=== PATIENT | female | born 1950 | race Caucasian/White ===

== ENCOUNTER 2017-05-21 11:58 | Inpatient (IN) | payer OTHER ==
[~2017-05-21] VITALS: Ht 160 cm; Wt 104.8 kg
--- NOTE | 2017-05-21 12:06 | ED DYSPNEA/ASTHMA COMPLAINT ---
History of Present Illness General Chief Complaint: Dyspnea (COPD, CHF, Other) Stated Complaint: BIBA WITH SOB Source: patient Exam Limitations: no limitations Vital Signs & Intake/Output Vital Signs & Intake/Output Vital Signs Date Time Temp Pulse Resp B/P B/P Pulse O2 O2 Flow FiO2 Mean Ox Delivery Rate 05/21 1504 76 134/95 05/21 1234 97.8 80 18 181/89 93 Room Air Allergies Coded Allergies: No Known Allergies (05/21/17) Reconcile Medications Calcium Carbonate/Vitamin D3 (Caltrate 600 + D Tablet) (Unknown Strength) TABLET (Unknown Dose) PO DAILY SUPPLEMENT (Reported) Chlorthalidone 25 MG TABLET 1 TAB PO DAILY OSTEOPOROSIS (Reported) Diclofenac Sodium (Pennsaid) 20 MG/GRAM PER ACTUATION (2 %) BICYCLE DESIGNER 1 LINNETTE TOP PRN BACK OF KNEE (Reported) Multivit-Min/FA/Lycopen/Lutein (Centrum Silver Tablet) 0.4 MG-300 MCG-250 MCG TABLET 1 TAB PO DAILY SUPPLEMENT (Reported) Nystatin (Nystop) 100,000 UNIT/GRAM POWDER 1 LINNETTE TOP PRN SKIN FOLDS (Reported ) Potassium Chloride 20 MEQ TAB.ER.PRT 1 TAB PO DAILY SUPPLEMENT (Reported) Pyridoxine HCl (Vitamin B-6) (Unknown Strength) TABLET (Unknown Dose) PO DAILY SUPPLEMENT (Reported) Sertraline HCl 50 MG TABLET 1.5 TAB PO DAILY MENTAL HEALTH (Reported) Triage Note: [facility] PT WAS A RAPID RESPONSE. STATES SHE WAS SITTING TALKING WITH ONE OF THE FITNESS MENTORS AND STARTED TO FEEL CHEST PRESSURE AND SHORTNESS OF BREATH. STATES SHE HAS BEEN FEELING LIKE THIS PERIODICALLY Triage Nurses Notes Reviewed? yes Onset: Abrupt Duration: week(s): (1), continues in ED, intermittent Timing: single episode today Severity: mild, moderate Activities at Onset: activity Prior Episodes/Possible Cause: no prior episodes Modifying Factors: Worsens With: movement. Associated Symptoms: chest pain LMP (ages 10-50): post menopausal : No Patient currently breastfeeds: No HPI: 66-year-old female brought in by notes his rapid response complaining of chest pain and shortness of breath. Patient reports that since last Thursday while she was on vacation in [place] she started to notice pressure in the center of her chest. She rates the pressure as a 3 out of 10 that is worse with physical activity and improves at rest. She denies having previous chest pain or pressure in the past. No prior MIs cardiac cath's. The pressure continued intermittently throughout this week. Earlier today patient was at a fitness center getting evaluated by instructorKrupa Boone that while she had been walking during fitness test she was feeling short of breath and was having chest pressure. The instructor color rapid response patient was brought in by ambulance. Patient currently does reports some shortness of breath. She states "she feels like she cannot take a deep breath". Additionally she reports some minor chest pressure. Denies any hemoptysis, lower extremity edema, coughing, fever, history of blood clots, recent trauma, recent surgery, estrogen use, back pain or any other associated symptoms. She has not taken any medication for the pain. She is seen by highway maintainer Dr. Lo. She also has a retail special event associate at [place]. She has been seeing the retail special event associate because during a surgical procedure her oxygen saturation had dropped to the low 90s. She denies any previous history of smoking. She does report that her brother has a history of coronary artery disease and had an NM in his 40s. (ROBIN CUELLAR PA-C) Past History Travel History Traveled to [place] past 21 day No Medical History Any Pertinent Medical History? see below for history Surgical History Surgical History: none Family History Hx Contributory? Yes (ROBIN CUELLAR PA-C) Review of Systems Review of Systems Constitutional: Reports: no symptoms. EENTM: Reports: no symptoms. Respiratory: Reports: see HPI, short of breath. Cardiovascular: Reports: see HPI, chest pain. GI: Reports: no symptoms. Genitourinary: Reports: no symptoms. Musculoskeletal: Reports: no symptoms. Skin: Reports: no symptoms. Neurological/Psychological: Reports: no symptoms. Hematologic/Endocrine: Reports: no symptoms. Immunologic/Allergic: Reports: no symptoms. All Other Systems: Reviewed and Negative (ROBIN CUELLAR PA-C) Physical Exam Physical Exam General Appearance: well developed/nourished, no apparent distress, alert, awake , obese Head: atraumatic, normal appearance Eyes: Bilateral: normal appearance, PERRL, EOMI. Ears, Nose, Throat: normal pharynx, normal ENT inspection, hearing grossly normal Neck: normal inspection, supple, full range of motion Respiratory: normal breath sounds, chest non-tender, no respiratory distress, lungs clear Cardiovascular: regular rate/rhythm, normal peripheral pulses Peripheral Pulses: 2+ dorsalis pedis (R), 2+ dorsalis pedis (L) Gastrointestinal: normal bowel sounds, soft, non-tender, no organomegaly Extremities: normal inspection, normal capillary refill, normal range of motion, no edema Neurologic/Psych: no motor/sensory deficits, awake, alert, oriented x 3, normal gait, normal mood/affect Skin: intact, normal color, warm/dry Lymphatic: no anterior cervical susan Core Measures ACS in differential dx? Yes Severe Sepsis Present: No Septic Shock Present: No (ROBIN CUELLAR PA-C) Progress Differential Diagnosis: AMI, bronchitis, costochondritis, CHF, COPD, musculoskeletal pain, pericarditis, pulmonary embolism, pneumonia, pneumothorax, rib fracture, unstable angina Plan of Care: Orders Procedure Date/time Status Nothing by Mouth 05/22 B Active TROPONIN LEVEL 05/22 2030 Active EKG 05/22 2030 Active LIPID PANEL 05/22 0500 Active ICU LAB BUNDLE 05/22 0500 Active CBC WITHOUT DIFFERENTIAL 05/22 0500 Active Pathway - chart 05/21 1631 Active Code Status 05/21 1631 Active TROPONIN LEVEL 05/21 1630 Active EKG 05/21 1630 Active ECHOCARDIOGRAM 05/21 1613 Active ACTIVE SURVEILLANCE NARES 05/21 1544 Active Patient Data 05/21 1432 Active Admit to inpatient 05/21 1425 Active Telemetry/Wood Gluer 05/21 1233 Active URINALYSIS 05/21 1233 Complete TROPONIN LEVEL 05/21 1233 Complete D-DIMER 05/21 1233 Complete COMPREHENSIVE METABOLIC PANEL 05/21 1233 Complete CBC WITHOUT DIFFERENTIAL 05/21 1233 Complete B-TYPE NATRIURETIC PEP (BNP) 05/21 1233 Complete Intake & Output 05/21 1213 Active EKG 05/21 1201 Active Pathway - chart 05/21 UNK Active House Staff 05/21 UNK Active VTE Mechanical Prophylaxis 05/21 UNK Active Vital Signs 05/21 UNK Active Current Medications Sig/Virgie Start time Last Medication Dose Stop Time Status Admin Multivitamins 1 TAB DAILY 05/22 1000 UNVr (Theragran Vitamins) Potassium Chloride 20 MEQ DAILY 05/22 1000 UNVr (K-Dur) Atorvastatin Calcium 80 MG 1700 05/21 1700 AC (Lipitor) Sodium Chloride 1,000 ML Q20H 05/21 1645 UNVr (Normal Saline 0.9%) Acetaminophen 650 MG Q6P PRN 05/21 1630 UNVr (Tylenol) Nystatin 1 LINNETTE BID PRN 05/21 1630 UNVr (Mycostatin) Nitroglycerin 25 MG .[EMILY] 05/21 1530 AC (Nitroglycerin Drip 25 mg in D5 250ml) Dextrose/Water 250 ML (D5W) Heparin Sodium 4,000 UNIT ONCE ONE 05/21 1430 CAN (Porcine) 05/21 1431 Heparin Sodium/ 25,000 UNIT Q24H 05/21 1430 AC 05/21 Dextrose 05/22 1429 1622 (Heparin) Dextrose/Water 500 ML (D5W) Laboratory Tests 05/21/17 1633: Troponin I Pending 05/21/17 1255: Anion Gap 12, Estimated GFR > 60, BUN/Creatinine Ratio 24.3, Glucose 96, Calcium 9.8, Total Bilirubin 0.7, AST 41 H, ALT 40, Alkaline Phosphatase 69, Troponin I 1.72 *H, Xok-M-Jemceiorjel Pept 106, Total Protein 7.6, Albumin 4.5, Globulin 3.1, Albumin/Globulin Ratio 1.5, D-Dimer High Sensitivty 238, CBC w Diff NO MAN DIFF REQ, RBC 5.11, MCV 84.3, MCH 27.8, RDW 14.4, MPV 9.8, Gran % 79.3 H, Lymphocytes % 15.1 L, Monocytes % 4.4, Eosinophils % 0.9, Basophils % 0.3, Absolute Granulocytes 6.7 H, Absolute Lymphocytes 1.3, Absolute Monocytes 0.4, Absolute Eosinophils 0.1, Absolute Basophils 0, PUBS MCHC 33.0 05/21/17 1240: Urine Color YEL, Urine Clarity HAZY H, Urine pH 7.0, Ur Specific [place] 1.010, Urine Protein NEG, Urine Ketones NEG, Urine Nitrite NEG, Urine Bilirubin NEG, Urine Urobilinogen 0.2, Ur Leukocyte Esterase SMALL H, Ur Microscopic SEDIMENT EXAMINED, Urine RBC RARE, Urine WBC RARE, Ur Epithelial Cells RARE, Urine Bacteria RARE H, Urine Hemoglobin TRACE-LYSED, Urine Glucose NEG Microbiology 05/21 1544 UPPER RESP: Surveillance Culture - ORD Patient seen and evaluated. She'll receive a workup for chest pain of possible cardiac origin. She is currently nontoxic appearing vitals are stable. 2:16 PM: Troponin came back at 1.72. Remaining labs are within normal limits and unchanged from previous. Patient will have a CTA to rule out pulmonary embolism. Cardiology paged. Patient will need to be admitted for further evaluation and monitoring. CTA is negative. Discussed all results with patient. Talked with cardiology Dr Megan MD. he recommends loading the patient with heparin 4000 and aspirin 325 Plavix 300 and Lipitor 80. Nitro drip due to chest pain with elevated blood pressure. SPOKE With MOD. Patient will be admitted to ICU. (ALISA WELLS,ROBIN) Diagnostic Imaging: Viewed by Me: Radiology Read, CT Scan. Initial ED EKG: sinus rhythm, LVH, non-specific t wave abnormalites inferior leads Comments: PATIENT: SAMIR BETANCOURT PRESENT AGE: 66 PATIENT ACCOUNT NO: [id number] : 52 LOCATION: [facility] ORDERING PHYSICIAN: ROBIN CUELLAR PA-C SERVICE DATE: 05/21/171233 EXAM TYPE: RAD - XRY-CHEST XRAY, PA AND LATERAL EXAMINATION: XR CHEST CLINICAL INFORMATION: Chest pressure, shortness of breath. COMPARISON: None TECHNIQUE: 2 views of the chest were obtained. FINDINGS: The cardiomediastinal silhouette is normal. No focal consolidation, pleural effusion or pneumothorax is appreciated. Osseous structures are unremarkable. IMPRESSION: No acute cardiopulmonary process. DICTATED BY: PRATIK ALDRICH MD DATE/TIME DICTATED:05/21/171311 GLASS INSTALLER TECHNICIAN:FILOMENA DATE/TIME TRANSCRIBED:05/21/171311 PATIENT: SAMIR BETANCOURT PRESENT AGE: 66 PATIENT ACCOUNT NO: [id number] : 52 LOCATION: [facility] ORDERING PHYSICIAN: ROBIN CUELLAR PA-C SERVICE DATE: 05/21/173749 EXAM TYPE: CAT - CTA CHEST-PULMONARY EMBOLISM EXAMINATION: CT ANGIOGRAM OF THE CHEST WITH AND WITHOUT CONTRAST (CT PULMONARY ANGIOGRAM FOR PE) CLINICAL INFORMATION: Pain shortness of breath pulmonary embolism COMPARISON: Chest x-ray performed same day TECHNIQUE: Prior to contrast administration, noncontrast localization images were obtained. Subsequently, multidetector volumetric imaging was performed from the thoracic inlet to below the diaphragms following the administration of 95 mL Optiray 350 intravenous contrast. No contrast reaction reported. Sagittal, coronal, and MIP oblique sagittal reformatted images were obtained on the CT workstation, uploaded to PACS, and reviewed. Total exam dose-length product 523 mGy-cm. FINDINGS: QUALITY OF STUDY/CONTRAST BOLUS: Satisfactory PULMONARY ARTERIES: No central or segmental pulmonary emboli. THORACIC AORTA: There is mild calcific atherosclerotic disease. LUNG: No focal consolidation, nodules or masses. PLEURA: No pleural effusion or pneumothorax. MEDIASTINUM: Normal heart size. No pericardial effusion. No hilar or mediastinal lymphadenopathy. No evidence of septal bowing or right heart strain. CHEST WALL/AXILLA: No axillary or internal mammary lymphadenopathy. OSSEOUS STRUCTURES: No acute or suspicious osseous abnormality. UPPER ABDOMEN: Unremarkable. No reflux of contrast into the hepatic veins to suggest elevated right heart pressures. IMPRESSION: No evidence of pulmonary embolism. No acute disease Mild calcific atherosclerotic disease. VTE: negative DICTATED BY: BOLIVAR SANCHEZ MD DATE/TIME DICTATED:05/21/171443 GLASS INSTALLER TECHNICIAN:FILOMENA DATE/TIME TRANSCRIBED:05/21/171443 CONFIDENTIAL, DO NOT COPY WITHOUT APPROPRIATE AUTHORIZATION. <Electronically signed in Other Vendor System> SIGNED BY: BOLIVAR SANCHEZ MD 05/21 8218 (ROBIN CUELLAR PA-C) Departure Departure Disposition: STILL A PATIENT Condition: Stable Clinical Impression Primary Impression: Chest pain Qualifiers: Chest pain type: chest pain due to myocardial ischemia Ischemic chest pain type: unstable angina pectoris Qualified Code: I20.0 - Unstable angina Secondary Impressions: SOB (shortness of breath) on exertion Referrals: UNKNOWN Departure Forms: Customer Survey General Discharge Information Admission Note Spoke With: MEGAN OWENS,[facility] Documentation of Exam: Documentation of any treatments & extenuating circumstances including Concerns Regarding Discharge (functional status, medication knowledge or non-compliance, living conditions, etc.) that warrant an admission rather than observation: Patient requires admission to the ICU for ICU monitoring, monitoring vital signs , serial labs, cardiology consult, IV heparin, medication adjustment, physical therapy consult (ROBIN CUELLAR PA-C) PA/APARTMENT COORDINATOR Co-Sign Statement Statement: ED Attending supervision documentation- [X] I saw and evaluated the patient. I have also reviewed all the pertinent lab results and diagnostic results. I agree with the findings and the plan of care as documented in the PA's/APARTMENT COORDINATOR's documentation. [X] I have reviewed the ED Record and agree with the PA's/APARTMENT COORDINATOR's documentation. [] Additions or exceptions (if any) to the PAs/APARTMENT COORDINATOR's note and plan are summarized below: [Patient sent over as a rapid response. Patient has been having increasing chest pressure with exertion as well as dyspnea on exertion. Patient found to have an elevated troponin. Patient has continued pain. Patient will be admitted to the cardiology service in the ICU.] (CASANDRA OWENS,ALIZE Wang) Critical Care Note Critical Care Note Critical Care Time: non-applicable (ALISA WELLS,ROBIN)
--- NOTE | 2017-05-21 12:10 | NUR ---
[facility]. PT WAS A RAPID RESPONSE. STATES SHE WAS SITTING TALKING WITH ONE OF THE FITNESS MENTORS AND STARTED TO FEEL CHEST PRESSURE AND SHORTNESS OF BREATH. STATES SHE HAS BEEN FEELING LIKE THIS PERIODICALLY. STATES SHE WAS IN [place] LAST WEEK AND FLEW HOME X2 DAYS AGO. STATES SHE DOES HAVE CHEST PRESSURE CURRENTLY.
--- NOTE | 2017-05-21 12:40 | NUR ---
PT TO RAD.
--- NOTE | 2017-05-21 12:42 | NUR ---
BACK FROM RAD.
--- NOTE | 2017-05-21 12:56 | NUR ---
PT BLOOD SENT TO THE LAB BLUE,SST,LAV,ESPINAL AND THREE URINE TUBES
[2017-05-21 13:03] LABS: ABSOLUTE BASOPHIL COUNT 0 /CUMM (0.0-0.2); ABSOLUTE EOSINOPHIL COUNT 0.1 /CUMM (0.0-0.7); ABSOLUTE GRANULOCYTE CT 6.7 /CUMM (1.4-6.5); ABSOLUTE LYMPH COUNT 1.3 /CUMM (1.2-3.4); ABSOLUTE MONOCYTE COUNT 0.4 /CUMM (0.10-0.60); BASOPHIL % 0.3 % (0.0-2.0); EOSINOPHIL % 0.9 % (0-5); GRANULOCYTE % 79.3 % (42.2-75.2); HEMATOCRIT 43.1 % (37-47); MEAN CORPUSCULAR HGB 27.8 PG (27.0-31.0); MEAN CORPUSCULAR VOLUME 84.3 FL (81.0-99.0); MEAN PLATELET VOLUME 9.8 FL (7.4-10.4); PLATELET COUNT 244 /CUMM (130-400); RBC DISTRIBUTION WIDTH 14.4 % (11.5-14.5); RED BLOOD CELL CT 5.11 /CUMM (4.20-5.40); WHITE BLOOD CELL COUNT 8.4 /CUMM (4.8-10.8)
--- NOTE | 2017-05-21 13:17 | RADIOLOGY REPORT ---
EXAMINATION: XR CHEST CLINICAL INFORMATION: Chest pressure, shortness of breath. COMPARISON: None TECHNIQUE: 2 views of the chest were obtained. FINDINGS: The cardiomediastinal silhouette is normal. No focal consolidation, pleural effusion or pneumothorax is appreciated. Osseous structures are unremarkable. IMPRESSION: No acute cardiopulmonary process.
[2017-05-21] MEDS ORDERED: POTASSIUM CHLO20 ME2 PO (13:34)
[2017-05-21] MEDS ORDERED: CHLORTHALIDONE25 M1 PO (13:34)
[2017-05-21] MEDS ORDERED: CALTRATE 600 +1 EACH PO (13:35)
[2017-05-21] MEDS ORDERED: CENTRUM SILVER1 EAC3 PO (13:35)
[2017-05-21] MEDS ORDERED: SERTRALINE HCL50 MG PO (13:35)
[2017-05-21] MEDS ORDERED: VITAMIN B-650 M2 PO (13:36)
[2017-05-21] MEDS ORDERED: PENNSAID112 GM TOP (13:36)
[2017-05-21] MEDS ORDERED: NYSTOP60 GM TOP (13:36)
--- NOTE | 2017-05-21 13:41 | NUR ---
CRITICAL TEST RESULTS [id number] SAMIR BETANCOURT 66 F TESTS AND RESULTS: TROPONIN 1.72 Results received and read back by: RADHA LACY Results received date and time: 05/21/17 1341 The following provider was notified of the results, and read the results back: SHANICE CUELLAR Notified date and time: 05/21/17 at 1341
--- NOTE | 2017-05-21 13:51 | NUR ---
PT TO CAT.
--- NOTE | 2017-05-21 14:08 | NUR ---
BACK FROM CAT.
--- NOTE | 2017-05-21 15:07 | CT SCAN REPORT ---
EXAMINATION: CT ANGIOGRAM OF THE CHEST WITH AND WITHOUT CONTRAST (CT PULMONARY ANGIOGRAM FOR PE) CLINICAL INFORMATION: Pain shortness of breath pulmonary embolism COMPARISON: Chest x-ray performed same day TECHNIQUE: Prior to contrast administration, noncontrast localization images were obtained. Subsequently, multidetector volumetric imaging was performed from the thoracic inlet to below the diaphragms following the administration of 95 mL Optiray 350 intravenous contrast. No contrast reaction reported. Sagittal, coronal, and MIP oblique sagittal reformatted images were obtained on the CT workstation, uploaded to PACS, and reviewed. Total exam dose-length product 523 mGy-cm. FINDINGS: QUALITY OF STUDY/CONTRAST BOLUS: Satisfactory PULMONARY ARTERIES: No central or segmental pulmonary emboli. THORACIC AORTA: There is mild calcific atherosclerotic disease. LUNG: No focal consolidation, nodules or masses. PLEURA: No pleural effusion or pneumothorax. MEDIASTINUM: Normal heart size. No pericardial effusion. No hilar or mediastinal lymphadenopathy. No evidence of septal bowing or right heart strain. CHEST WALL/AXILLA: No axillary or internal mammary lymphadenopathy. OSSEOUS STRUCTURES: No acute or suspicious osseous abnormality. UPPER ABDOMEN: Unremarkable. No reflux of contrast into the hepatic veins to suggest elevated right heart pressures. IMPRESSION: No evidence of pulmonary embolism. No acute disease Mild calcific atherosclerotic disease. VTE: negative
--- NOTE | 2017-05-21 15:13 | NUR ---
PER HOUSE STAFF, NO NITRO DRIP TO BE STARTED, ONLY START HEPARIN DRIP.
--- NOTE | 2017-05-21 15:21 | NUR ---
RECIEVED REPORT FROM [facility] ASSUMED CARE OF PT. DR SARAVIA CALLED AND GAVE ORDERS TO START HEPARIN GTT. NOTIFIED THAT THERE IS ORDER FOR NTG GTT THAT WAS ORDERED BY ED STAFF. DR SARAVIA STATES NOT TO START NTG GTT AT THIS TIME
--- NOTE | 2017-05-21 16:20 | NUR ---
PT UP TO RESTROOM TO VOID. PT STARTED ON HEPARIN AND NTG GTT
--- NOTE | 2017-05-21 16:22 | History & Physical ---
LIBRADO SHARMAVOLODYMYR 05/21/17 1615: General Information and HPI MD Statement: I have seen and personally examined SAMIR BETANCOURT and documented this H&P. The patient is a 66 year old F who presented with a patient stated chief complaint of SOB chest pressure]. Source of Information: patient, old records Exam Limitations: no limitations History of Present Illness: 66 years old lady with pmh of osteoprosis, LINA, low o2 saturation, previous gastric band(inserted 2008, removed around 2014) was brought back ambulance from [facility] with chief complaint of chest pressure and shortness of breath. She reported that she was in October about 5 days ago and started noticing being shortness of breath on moderate exertion and chest pressure mediastinal 2 out of 10 without any nausea, vomiting, radiation. SHe attributed it to high altitude. Today she went to [facility] and had a 6 minute walk test, at 3 minutes she was severely dyspneic and dizzy with moderate chest pressure rapid response was called and patient was transferred to ED. She has a history of low o2 saturation(low 90's) and had an extensive workup by you business analytics intern but according to her everything was negative. She denies smoking, illicit drugs, alcohol use. Her brother had an [place] at age of 45 and he is a smoker. She denies any fever, chills, bone pain, nausea, vomiting, diarrhea, constipation, cough, headache, swelling of the legs. Notable labs on admission troponin was 1.72, d-dimer was within normal limits CTA ruled out PE EKG showed normal sinus rhythm, 78, QTC 424, ventricular hypertrophy, inverted T 's in 3 and V1, questionable Q-wave in V1 and 3? Allergies/Medications Allergies: Coded Allergies: No Known Allergies (05/21/17) Past History Travel History Traveled to [place] past 21 day No Medical History Respiratory: obstructive sleep apnea Endocrine: prediabetes Surgical History Surgical History: none Past Family/Social History Family History Relations & Conditions if any BROTHER ([place] CAD DM HTN). FATHER (esophageal cancer). MOTHER (lung cancer). Psychosocial History Smoking Status: Never Smoked ETOH Use: denies use Illicit Drug Use: denies illicit drug use Review of Systems Review of Systems Constitutional: Reports: see HPI. Exam & Diagnostic Data Last 24 Hrs of Vital Signs/I&O Vital Signs Date Time Temp Pulse Resp B/P B/P Pulse O2 O2 Flow FiO2 Mean Ox Delivery Rate 05/21 1504 76 134/95 05/21 1234 97.8 80 18 181/89 93 Room Air Intake & Output 05/21 1600 05/21 0800 05/21 0000 Intake Total Output Total Balance Patient 232 lb Weight Weight Reported by Patient Measurement Method Physical Exam General Appearance Alert, Oriented X3, Cooperative Cardiovascular Regular Rate, Normal S1, Normal S2, 2-3/6 systolic murmur best heard second IC area Lungs Clear to Auscultation, Normal Air Movement Abdomen Normal Bowel Sounds, Soft, No Tenderness Neurological Normal Gait, Normal Speech, Strength at 5/5 X4 Ext Extremities No Clubbing, No Cyanosis, trace lower right ext edema Assessment/Plan Assessment: 66 years old lady with pmh of osteoprosis, LINA, low o2 saturation, previous gastric band(inserted 2008, removed around 2014) was brought back ambulance from [facility] with chief complaint of chest pressure and shortness of breath. She reported that she was in October about 5 days ago and started noticing being shortness of breath on moderate exertion and chest pressure mediastinal 2 out of 10 without any nausea, vomiting, radiation. SHe attributed it to high altitude. Today she went [facility] and had a 6 minute walk test, at 3 minutes she was severely dyspneic and dizzy with moderate chest pressure rapid response was called and patient was transferred to ED. Notable labs on admission troponin was 1.72, d-dimer was within normal limits CTA ruled out PE EKG showed normal sinus rhythm, 78, QTC 424, ventricular hypertrophy, inverted T 's in 3 and V1, questionable Q-wave in V1 and 3? Assessment and plan #ACS most likely unstable angina -Admit to ICU -Put the patient on IV heparin -Aspirin 325 and Plavix 300 -Aspirin daily -start High doses statin -Gerry score : (2 )8% risk at 14 days of: all-cause mortality, new or recurrent [place], or severe recurrent ischemia requiring urgent revascularization. -We can consider starting the patient on low-dose metoprolol -Start the patient on nitro drip and titrate to normal blood pressure -will obtain echocardiogram -NPO for now on mild IV hydration -Serial EKG and troponin 3, possible chance of transferring for catheterization hx of osteoprosis -hold chrolitalidone for now -we can start vit D calcium tomorrow hx of anxiety depression -Continue SSRI tomorrow Full code, Tylenol and morphine for pain, NPO, DVT prophylaxis Alps and IV heparin As Ranked By This Provider Problem List: 1. Chest pain Qualifiers Chest pain type: chest pain due to myocardial ischemia Ischemic chest pain type : unstable angina pectoris Qualified Code: I20.0 - Unstable angina Core Measures/Miscellaneous Acute Coronary Syndrome ACS Diagnosis: Yes ASA W/I 24hr of admit Yes Beta-Selwyn W/I 24hrs Yes LDL assessed W/I 24 hrs No Currently on Statin Yes Cerebrovascular Accident CVA/TIA Diagnosis: No Congestive Heart Failure CHF Diagnosis: No VTE (View Protocol) VTE Risk Factors: Age > 40 No [facility] VTE prophylaxis d/t: No contraindications VTE Diagnosis: No VTE Type: NONE VTE Confirmed by (Test): NONE Sepsis (View Protocol) Severe Sepsis Present: No Septic Shock Septic Shock Present: No Miscellaneous Documentation Attending Case Discussed With: IS[facility]AR [facility] Primary Care Physician: KURTIS FREY MD Patient sees these Specialists Dr nielsen stage technician Dr kelly business analytics intern JONNY OWENS,SB 05/22/17 1101: General Information and HPI Allergies/Medications Home Med list Aspirin (Aspirin*) 81 MG TAB.CHEW 1 TAB PO DAILY HEART HEALTH Atorvastatin Calcium 80 MG TABLET 1 TAB PO 1700 LIPID LOWERING Calcium Carbonate/Vitamin D3 (Caltrate 600 + D Tablet) (Unknown Strength) TABLET (Unknown Dose) PO DAILY SUPPLEMENT (Reported) Chlorthalidone 25 MG TABLET 1 TAB PO DAILY OSTEOPOROSIS (Reported) Diclofenac Sodium (Pennsaid) 20 MG/GRAM PER ACTUATION (2 %) .PERSONAL COMPUTER SPECIALIST 1 LINNETTE TOP PRN BACK OF KNEE (Reported) Heparin (Heparin-1/2NS 25,000 Units/500) 25,000 UNIT/500 ML (50 UNIT/ML) IV.SOLN 12 UNITS IV CONTINOUS INFUSION unstable angina Multivit-Min/FA/Lycopen/Lutein (Centrum Silver Tablet) 0.4 MG-300 MCG-250 MCG TABLET 1 TAB PO DAILY SUPPLEMENT (Reported) Nitroglycerin/D5w (Ntg 25 MG/250 Ml in D5w) 25 MG/250 ML (0.1 MG/ML) INFUS..BTL 5 MCG IV CONTINOUS INFUSION ANGINA PLEASE CT DRIP AT 5 MCG/HOUR Nystatin (Nystop) 100,000 UNIT/GRAM POWDER 1 LINNETTE TOP PRN SKIN FOLDS (Reported ) Potassium Chloride 20 MEQ TAB.ER.PRT 1 TAB PO DAILY SUPPLEMENT (Reported) Pyridoxine HCl (Vitamin B-6) (Unknown Strength) TABLET (Unknown Dose) PO DAILY SUPPLEMENT (Reported) Sertraline HCl 50 MG TABLET 1.5 TAB PO DAILY MENTAL HEALTH (Reported) Core Measures/Miscellaneous VTE (View Protocol) No VTE Pharm Prophylaxis d/t: VTE low risk (on anticoagulation (heparin)) Miscellaneous Documentation Level of Patient Care: Critical Care (CRI) Attending MD Review Statement Attending Statement Attending MD Statement: examined this patient, discuss w/resident/PA/ELECTRONIC EQUIPMENT REPAIRMEN, agreed w/resident/PA/ELECTRONIC EQUIPMENT REPAIRMEN, reviewed EMR data (avail), discussed with nursing, discussed with case mgmt, reviewed images Attending Assessment/Plan: I have personally interviewed and examined the patient, and agree with above. The patient post likely presents with a non-ST segment elevation myocardial infarction. Given her symptoms 1 week ago, it is unclear if her troponins represent an acute process or are secondary to a reduction from an event one week ago. Regardless, as the patient has new exertional anginal symptoms, versus continued exertional anginal symptoms with post infarct angina, we will refer for cardiac catheterization today. A load of clopidogrel has been given; however, we will not continue the same in the event that surgical diseases found on cardiac catheterization. She will be transferred to the [facility] today. I have spoken with the accepting cna instructor (Dr. Peter Ponce: [phone]). She will maintain on IV heparin as well as nitroglycerin until the catheterization. She will continue aspirin, statin as well as a beta selwyn. She will also follow-up with her primary stage technician Dr. nielsen.
--- NOTE | 2017-05-21 16:34 | NUR ---
1630 TROP DRAWN AND SENT
--- NOTE | 2017-05-21 16:42 | NUR ---
BED 104
--- NOTE | 2017-05-21 16:45 | NUR ---
BEDSIDE ECHO BEING PERFORMED.
--- NOTE | 2017-05-21 18:00 | NUR ---
CRITICAL TEST RESULTS [id number] SAMIR BETANCOURT 66 F TESTS AND RESULTS: TROPONIN 1.8 Results received and read back by: LIZZETTE MATUTE Results received date and time: 05/21/17 1800 The following provider was notified of the results, and read the results back: DR SHARMA Notified date and time: 05/21/17 at 1758
[2017-05-21 18:10] VITALS: BP 142/84
--- NOTE | 2017-05-21 18:44 | NUR ---
Patient arrived to [facility] from ER at approx 1805, accompanied by RN on the monitoring manager. She is awake, alert and oriented- very pleasant. Follows commands and moves all extremities- No neuro deficits are noted. NSR on tele monitor, HR= 70-90's. SBP: 140's- Heparin gtt infusing per protocol with the next PTT due at 2220- Nitro gtt is infusing at 10mcg- She c/o intermittent chest pressure 2/10 which is much improved per patient. ECHO completed. She was placed on 2L nc upon arrival to ICU, o2 sats now 95%- RA o2 sats were 89%. She states that she becomes SOB with exertion and her baseline O2 sats on room air are at 91%. Lungs clear and diminished. Abdomen is soft and non tender with + bowel sounds. A dinner tray has been ordered. She will be NPO after midnight for an anticipated cardiac cath- Education has been provided. She is OOB indep and was able to walk from the stretcher to the bed. Skin appears intact with no areas of pressure injury noted. Dr. Herzog at the bedside to assess and discuss POC with patient and family. Vitals currently stable and pt offers no complaints. Repeat labs due at 2029- Will continue to closely monitor patient.
--- NOTE | 2017-05-21 20:40 | ECHOCARDIOGRAM REPORT ---
SAMIR BETANCOURT Age: 66 : 1950 Gender: F Exam Date: 05/21/2017 16:31 Exam Location: ER Ht (in): 63 Wt (lb): 232 BSA: 2.22 BP: 134 / 95 Ordering Physician: JUDITH SHARMA MD Referring Physician: Josh Guzman M.D. Technologist: Kathe Garcia RDCS Room Number: ER#2 Indications: CHEST PAIN Rhythm: Technical Quality: Technically difficult study FINDINGS Left Ventricle Left ventricular cavity size normal. Left ventricular wall thickness moderately increased. No obvious regional wall motion abnormalities. Hyperdynamic left ventricular systolic function. Left ventricular ejection fraction is estimated at > 65 %. Right Ventricle Right ventricle not well visualized, grossly normal. Right Atrium Right atrium not well visualized, grossly normal. Left Atrium Left atrium not well visualized, grossly normal. Mitral Valve Mitral valve not well visualized, grossly normal. No mitral stenosis. Trace mitral regurgitation. Aortic Valve No aortic stenosis. Trileaflet aortic valve. Diffuse thickening (mild sclerosis) of the aortic valve cusps without reduced excursion. Tricuspid Valve Tricuspid valve not well visualized, grossly normal. Trace tricuspid regurgitation. Unable to estimate the right ventricular systolic pressure. Pulmonic Valve Pulmonic valve not well visualized, grossly normal. Pericardium No obvious pericardial effusion. Great Vessels Normal size aortic root. CONCLUSIONS Technically difficult study. Left ventricular cavity size normal. Left ventricular wall thickness moderately increased. No obvious regional wall motion abnormalities. Hyperdynamic left ventricular systolic function. Left ventricular ejection fraction is estimated at > 65 %. Right ventricle not well visualized, grossly normal. Unable to estimate the right ventricular systolic pressure. No obvious pericardial effusion. Josh Guzman M.D. (Electronically Signed) Final Date: 21 May 2017 20:40 MEASUREMENTS (Male / Female) Normal Values 2D ECHO LV Diastolic Diameter PLAX 3.7 cm 4.2 - 5.9 / 3.9 - 5.3 cm LV Systolic Diameter PLAX 2.1 cm 2.1 - 4.0 cm LV Fractional Shortening PLAX 43.2 % 25 - 46 % LV Ejection Fraction 2D Teich 75.2 % IVS Diastolic Thickness 1.7 cm LVPW Diastolic Thickness 1.6 cm LV Relative Wall Thickness 0.9 RV Internal Dim ED PLAX 2.2 cm 1.9 - 3.8 cm LVOT Diameter 2.0 cm Aortic Root Diameter 2.9 cm LA Systolic Diameter LX 3.9 cm 3.0 - 4.0 / 2.7 - 3.8 cm LA Volume 27.0 cm 18 - 58 / 22 - 52 cm Ascending Aorta Diameter 3.9 cm DOPPLER AV Peak Velocity 159.0 cm/s AV Peak Gradient 10.1 mmHg AV Mean Velocity 110.0 cm/s AV Mean Gradient 6.0 mmHg AV Velocity Time Integral 28.0 cm LVOT Peak Velocity 117.0 cm/s LVOT Peak Gradient 5.5 mmHg LVOT Mean Velocity 75.1 cm/s LVOT Mean Gradient 3.0 mmHg LVOT Velocity Time Integral 21.3 cm LVOT Stroke Volume 66.9 cm AV Area Cont Eq vti 2.4 cm AV Area Cont Eq pk 2.3 cm MV Peak Velocity 94.8 cm/s MV Peak Gradient 3.6 mmHg MV Mean Velocity 56.8 cm/s MV Mean Gradient 1.0 mmHg Mitral E Point Velocity 53.3 cm/s Mitral A Point Velocity 68.6 cm/s Mitral E to A Ratio 0.8 MV PHT Velocity 73.7 cm/s MV Deceleration [place] 389.0 cm/s MV Pressure Half Time 56.8 ms MV Area PHT 3.9 cm MV Deceleration Time 219.0 ms TR Peak Velocity 111.0 cm/s TR Peak Gradient 4.9 mmHg Right Atrial Pressure 5.0 mmHg Pulmonary Artery Systolic Pressu 9.9 mmHg Right Ventricular Systolic Press 9.9 mmHg PV Peak Velocity 102.0 cm/s PV Peak Gradient 4.2 mmHg PV Mean Velocity 61.2 cm/s PV Mean Gradient 2.0 mmHg PV Velocity Time Integral 16.1 cm LV E' Lateral Velocity 8.7 cm/s Mitral E to LV E' Lateral Ratio 6.1 LV E' Septal Velocity 10.2 cm/s Mitral E to LV E' Septal Ratio 5.2
[2017-05-21 22:06] LABS: PTT 41 SEC (25-37)
--- NOTE | 2017-05-21 23:19 | NUR ---
FROM 1900-PT A/OX3, FOLLOWS COMMANDS. C/O HEADACHE-6 OUT OF 10-TYLENOL 650MG PO GIVEN WITH FAIR EFFECT-SEE EMAR. BREATH SOUNDS CLEAR WITH DIMINISHED BREATH SOUNDS AT BASES BILATERALLY. NO COUGH, SOB OR RESP DISTRESS NOTED AT PRESENT. PT WENT ON HER CPAP FROM HOME WITH 2L BLEED IN AT 2315. SEE FLOW SHEET FOR VS, 02 SATS, I/O'S. MONITOR SHOWS NSR, NO ECTOPY NOTED AT PRESENT. BP STABLE AT PRESENT. PT STATES SLIGHT INTERMITTENT CHEST PRESSURE-RATES 1-2 OUT OF 10-INSTRUCTED PT TO NOTIFY RN IF CHEST PRESSURE WORSENS. ON NTG GTT AT 10MCG/MIN. HEPARIN GTT WAS AT 9.5UNITS/KG/HR AT START OF [id number] SO PT WAS REBOLUSED WITH 5000 UNITS IV AND INCREASED BY 4UNITS/KG/HR TO 13.5 UNITS/KG/HR-WILL MONITOR FOR BLEEDING-NO BLEEDING NOTED OF YET. ABD SOFT, NONTENDER, NONDISTENDED, POSITIVE BOWEL SOUNDS. VOIDING CLEAR YELLOW URINE. SKIN INTACT. OOB TO BR WITH MINIMAL ASSISTANCE WITH IV'S-GAIT STEADY
[2017-05-22] VITALS: BP 120/80
--- NOTE | 2017-05-22 03:36 | NUR ---
C/O HEADACHE-RATES 5-6 OUT OF 10 AT PRESENT-TYLENOL 650MG PO GIVEN-SEE EMAR AND NTG GTT TITRATED DOWN TO 5MCG/MIN-WILL MONITOR. PT DENIES ANY CHEST PRESSURE AT PRESENT. NSR, BP STABLE
[2017-05-22 05:36] LABS: ABSOLUTE BASOPHIL COUNT 0 /CUMM (0.0-0.2); ABSOLUTE EOSINOPHIL COUNT 0.2 /CUMM (0.0-0.7); ABSOLUTE GRANULOCYTE CT 4.6 /CUMM (1.4-6.5); ABSOLUTE LYMPH COUNT 1.7 /CUMM (1.2-3.4); ABSOLUTE MONOCYTE COUNT 0.5 /CUMM (0.10-0.60); BASOPHIL % 0.4 % (0.0-2.0); EOSINOPHIL % 2.5 % (0-5); GRANULOCYTE % 64.9 % (42.2-75.2); MEAN CORPUSCULAR HGB CONC 33.1 G/DL (33.0-37.0); MEAN CORPUSCULAR VOLUME 84.4 FL (81.0-99.0); MEAN PLATELET VOLUME 9.5 FL (7.4-10.4); PLATELET COUNT 221 /CUMM (130-400); RBC DISTRIBUTION WIDTH 14.8 % (11.5-14.5); RED BLOOD CELL CT 4.42 /CUMM (4.20-5.40)
--- NOTE | 2017-05-22 05:44 | NUR ---
PT SLEPT ON AND OFF DURING THE NIGHT. PT STATES HEADACHE IMPROVED AFTER PO TYLENOL AND DECREASING NGT GTT. NGT GTT CURRENTLY AT 5MCG/MIN. PT STATES CHEST PAIN IS IMPROVED, "I'VE NOT NOTICED MY CHEST HURTING OVERNIGHT". MONITOR NSR, NO ECTOPY NOTED THOUGHOUT SHIFT. BP STABLE THOUGHOUT SHIFT. NO N/V OR DIAPHORESIS NOTED THOUGHOUT SHIFT ALTHOUGH PT C/O "FEELING HOT"-IMPROVED WITH FAN IN ROOM. OOB TO BR-GAIT STEADY. PT ON CPAP OVERNIGHT-3L BLEED IN. NO SOB OR RESP DISTRESS NOTED THOUGHOUT SHIFT. HEPARIN GTT CURRENTLY INFUSING AT 13.5UNITS/KG/HR-NO EVIDENCE OF BLEEDING NOTED THOUGHOUT SHIFT
[2017-05-22 05:48] LABS: HEMATOCRIT 37.3 % (37-47)
--- NOTE | 2017-05-22 05:57 | NUR ---
NPO SINCE 0000 MAINTAINED ORDERED
[2017-05-22 06:18] LABS: PTT > 120 SEC (25-37)
[2017-05-22 08:00] VITALS: BP 142/76
--- NOTE | 2017-05-22 08:23 | PN- Resident CRCU ---
Subjective HPI/CRCU Issues: Unstable Angina/NSTEMI 24 Hour Events: Seen and examined at bedside. Endorse symptomatic relief of chest pressues Objective Vital Signs & I&O Last 8 Hrs of Vitals and I&O: Laboratory Tests 05/22 05/22 05/21 1200 0544 2122 Chemistry Sodium (137 - 145 mmol/L) 142 Potassium (3.5 - 5.1 mmol/L) 3.5 Chloride (98 - 107 mmol/L) 103 Carbon Dioxide (22 - 30 mmol/L) 31 H Anion Gap (5 - 16) 8 BUN (7 - 17 mg/dL) 21 H Creatinine (0.5 - 1.0 mg/dL) 0.7 Estimated GFR (>60 ml/min) > 60 Glucose (65 - 99 mg/dL) 121 H Calcium (8.4 - 10.2 mg/dL) 9.8 Phosphorus (2.5 - 4.5 mg/dL) 5.0 H Magnesium (1.6 - 2.3 mg/dL) 2.9 H Total Bilirubin (0.2 - 1.3 mg/dL) 0.4 AST (14 - 36 U/L) 35 ALT (9 - 52 U/L) 37 Troponin I (< 0.11 ng/ml) 1.59 *H Albumin (3.5 - 5.0 g/dL) 3.5 Triglycerides (<150 mg/dL) 132 Cholesterol (<200 MG/DL) 143 LDL Cholesterol, Calc (65 - 129 mg/dL) 68 HDL Cholesterol (40 - 60 mg/dL) 49 Cholesterol/HDL Ratio (0.00 - 4.23 %) 2.9 Coagulation APTT (25 - 37 SEC) Cancelled > 120 *H 41 H Hematology CBC w Diff NO MAN DIFF REQ WBC (4.8 - 10.8 /CUMM) 7.0 RBC (4.20 - 5.40 /CUMM) 4.42 Hgb (12.0 - 16.0 G/DL) 12.4 Hct (37 - 47 %) 37.3 MCV (81.0 - 99.0 FL) 84.4 MCH (27.0 - 31.0 PG) 28.0 RDW (11.5 - 14.5 %) 14.8 H Plt Count (130 - 400 /CUMM) 221 MPV (7.4 - 10.4 FL) 9.5 Gran % (42.2 - 75.2 %) 64.9 Lymphocytes % (20.5 - 51.1 %) 24.9 Monocytes % (1.7 - 9.3 %) 7.3 Eosinophils % (0 - 5 %) 2.5 Basophils % (0.0 - 2.0 %) 0.4 Absolute Granulocytes (1.4 - 6.5 /CUMM) 4.6 Absolute Lymphocytes (1.2 - 3.4 /CUMM) 1.7 Absolute Monocytes (0.10 - 0.60 /CUMM) 0.5 Absolute Eosinophils (0.0 - 0.7 /CUMM) 0.2 Absolute Basophils (0.0 - 0.2 /CUMM) 0 PUBS MCHC (33.0 - 37.0 G/DL) 33.1 05/21 1633 Chemistry Troponin I (< 0.11 ng/ml) 1.82 *H Vital Signs Date Time Temp Pulse Resp B/P B/P Pulse O2 O2 Flow FiO2 Mean Ox Delivery Rate 05/22 0907 Room Air Room Air 05/22 0800 97 Room Air 05/22 0800 97.1 74 20 142/76 97 Room Air 05/22 0400 92 CPAP 3.0L 05/22 0000 92 CPAP 2.0L 05/22 0000 97.6 74 17 120/80 92 CPAP 2.0L 05/21 2000 97 Nasal 2.0L Cannula 05/21 1815 96 Nasal 2.0L Cannula 05/21 1810 98.9 77 18 142/84 96 Nasal 2.0L Cannula 05/21 1724 98.7 84 18 154/73 91 05/21 1504 76 134/95 Intake & Output 05/22 1600 05/22 0800 05/22 0000 Intake Total 253 265 Output Total 200 200 Balance 53 65 Intake, IV 253 145 Intake, Oral 0 120 Number 0 Bowel Movements Output, Urine 200 200 Patient 104.78 kg Weight Weight Bed scale Measurement Method Exam General Appearance: alert, awake, comfortable Head: atraumatic, normal appearance Ears, Nose, Throat: normal pharynx, hearing grossly normal Neck: normal inspection, no JVD appreciated Respiratory: normal breath sounds, chest non-tender, no respiratory distress Cardiovascular: regular rate/rhythm, no m/g/r appreciated Gastrointestinal: normal bowel sounds, soft, non-tender Extremities: normal inspection, normal capillary refill, normal range of motion, no edema Current Medications: Current Medications Sig/Virgie Start time Last Medication Dose Route Stop Time Status Admin Acetaminophen 650 MG Q6P PRN 05/21 1630 DCD 05/22 PO 0323 Aspirin 81 MG DAILY 05/22 1000 DCD 05/22 PO 0836 Atorvastatin Calcium 80 MG 1700 05/21 1700 DCD 05/21 PO 1855 Heparin Sodium/ 25,000 UNIT .STK-MED ONE 05/22 1125 DC Dextrose IV 05/22 1126 Heparin Sodium/ 25,000 UNIT Q24H 05/21 1430 DCD 05/22 Dextrose IV 05/22 1429 1125 Dextrose/Water 500 ML Multivitamins 1 TAB DAILY 05/22 1000 DCD 05/22 PO 0836 Nitroglycerin 25 MG .[EMILY] 05/21 1530 DCD Dextrose/Water 250 ML IV Nystatin 1 LINNETTE BID PRN 05/21 1630 DCD TOP Potassium Chloride 20 MEQ DAILY 05/22 1000 DCD 05/22 PO 0836 Sertraline HCl 75 MG DAILY 05/22 1000 DCD 05/22 PO 0932 Impression/Plan Impression/Problem List Impression: This is a very pleasemt 66 year old lady with pmh of osteoprosis, LINA, low o2 saturation, previous gastric band(inserted 2008, removed around 2014) was BIBA ambulance from [facility] with chief complaint of chest pressure and shortness of breath. Impression and plan * Unstable angina/nstemi. With positive troponins with eventual trending down. EKG not remarkable for obvious ischemic changes. * Recent history of osteoporosis * History of anxiety Plan Patient is ready medically optimized with statin therapy, heparin drip, aspirin, NTG drip and Plavix. ZONIA score is 3, consulted with cardiology today in the morning and recommended patient be transferred for heart cath. She'll be transferred to [facility] with accepting doctor for cath being Dr. Peter Ponce. Problem List: 1. Chest pain Pain Ratin Tomorrow's Labs & Rationales: NONE-DISCHARGE Plan DVT/Prophylaxis: pharmacological
--- NOTE | 2017-05-22 09:15 | Patient Discharge Instructions ---
Discharge Instructions General Discharge Information You were seen/treated for: chest pain/unstable angina Diet Continue normal diet: No Recommended Diet: Heart Healthy Acute Coronary Syndrome Inclusion Criteria At DC or during hospital stay patient has or had the following: ACS DIAGNOSIS Yes Discharge Core Measures Meds if any: Prescribed or Continued at Discharge GOPAL/ARB if EF <40% No Aspirin Yes Beta-Selwyn Yes Statin Yes Meds if any: NOT Prescribed or Continued at Discharge Congestive Heart Failure Inclusion Criteria At DC or during hospital stay patient has or had the following: CHF DIAGNOSIS No Discharge Core Measures Meds if any: Prescribed or Continued at Discharge Meds if any: NOT Prescribed or Continued at Discharge Cerebrovascular accident Inclusion Criteria At DC or during hospital stay patient has or had the following: CVA/TIA Diagnosis No Discharge Core Measures Meds if any: Prescribed or Continued at Discharge Meds if any: NOT Prescribed or Continued at Discharge Venous thromboembolism Inclusion Criteria VTE Diagnosis No VTE Type NONE VTE Confirmed by (Test) NONE Discharge Core Measures - Per Current guidelines, there needs to be overlap - treatment for the first 5 days of Warfarin therapy. - If discharged on Warfarin prior to 5 days of - overlap therapy, the patient will need to be - assessed for post discharge needs including - *Post discharge parental anticoagulation - *Warfarin and/or parental anticoagulation education - *Follow up date to check INR post discharge At least 5 days overlap therapy as Inpatient Yes Meds if any: Prescribed or Continued at Discharge Note: Overlap Therapy is Warfarin and Anticoagulant Meds if any: NOT Prescribed or Continued at Discharge
--- NOTE | 2017-05-22 09:35 | Discharge Summary ---
Visit Information Visit Dates Admission Date: 05/21/17 Discharge Date: 05/22/17 Hospital Course Course Attending Physician: ISAMAR OWENS,[facility] Primary Care Physician: TK OWENS,[facility] Course: This is a 66-year-old pleasant lady nonsmoker, nonalcoholic, no illicit drug abuse, morbidly obese with past medical history of osteoporosis, obstructive sleep apnea,low oxygen saturation, previous gastric band (inserted 2008, removed in 2014) was brought in to [facility] 05/22/2017 from [facility], after rapid response was called,as she started to feel short of breath and started to have chest pressure during her 6 minute walk test ( at 3 minutes) She reported that she started to notice some shortness of breath 5 days prior to admission with moderate exertion, also felt some chest pressure which was 2 out of 10 without any nausea vomiting, radiation, this was in the sternal area. Apparently she was in [place] when this happened and she attributed it to high- altitude. On the day of admission she went to the [facility] and had a 6 minute walk test, at 3 minutes she was severely dyspneic and dizzy with moderate chest pressure, therefore rapid response was called and she was transferred to the emergency department. She also reported to have low oxygen saturation (the low 90s) and an extensive workup by her supervisor boarding, according to her most of which was negative. She denied any smoking, illicit drug abuse, no alcohol abuse. Family history significant for ME in brother at age of 45 (for himself was a smoker). Denied any fever, chills, bone pain, nausea, vomiting, diarrhea, constipation, cough, headache, swelling of legs. Initially on admission labs were significant for troponins of 1.72. D-dimer normal limits. CT ruled out any pulmonary emboli. EKG showed normal sinus rhythm,rate of 78,QTC of 424,ventricular hypertrophy, inverted T waves in V3 and V1,questionable Qwaves in V1 and V3. Troponins trended as >> 1.72>>>1.82>> She was alert oriented 3, cooperative. Cardiovascular exam regular rate, normal S1-S2, 2 to 3/6 systolic murmur best heard in the second intercostal area. Lungs clear to auscultate, normal air movement. Abdomen normal bowel sounds, soft, nontender. Neurological exam nonfocal. Extremity did not show any clubbing or cyanosis, trace lower extremity edema on the right side. #1 She was admitted to ICU under cardiology service for acute coronary syndrome most likely secondary to unstable angina. She was started on IV heparin, 325 mg aspirin and Plavix 300 mg was given stat at the emergency department. She was continued on aspirin daily, high-dose statin was started. ZONIA score was noted to be 2, 8% risk at 14 days of all cause mortality, new or recurrent ME, or severe recurrent ischemia requiring urgent revascularization. Patient was started on low-dose metoprolol. She was also started on nitro drip and titrated to normal blood pressure. An echocardiogram was obtained which showed an ejection fraction greater than 65%, no wall motion abnormalities, no hypokinesia, did not show any major valvular abnormalities. Right ventricle systolic pressure could not be assessed very clearly with the echocardiogram.Patient send on Nitorglycerine drip at 5mics/min and iv heparin. 81 mg aspirin given today morning. Problem #2 she also had a history of osteoporosis for which she was on chlorthalidone which was held while inpatient. Consideration should be given to starting vitamin D and calcium once patient is discharged. Problem #3 she had history of anxiety and depression for which she took sertraline, which was held on admission but continued upon discharge. He was given Tylenol and morphine for pain, he is currently nothing by mouth, currently has IV heparin and IV nitro drip running. We will continue aspirin, statin and low-dose beta freddie.No indication for brylintta Allergies: Coded Allergies: No Known Allergies (05/21/17) Significant Procedures: SERVICE DATE: 05/21/17-1233 EXAM TYPE: RAD - XRY-CHEST XRAY, PA AND LATERAL EXAMINATION: XR CHEST CLINICAL INFORMATION: Chest pressure, shortness of breath. COMPARISON: None TECHNIQUE: 2 views of the chest were obtained. FINDINGS: The cardiomediastinal silhouette is normal. No focal consolidation, pleural effusion or pneumothorax is appreciated. Osseous structures are unremarkable. IMPRESSION: No acute cardiopulmonary process. SERVICE DATE: 05/21/17-1344 EXAM TYPE: CAT - CTA CHEST-PULMONARY EMBOLISM EXAMINATION: CT ANGIOGRAM OF THE CHEST WITH AND WITHOUT CONTRAST (CT PULMONARY ANGIOGRAM FOR PE) CLINICAL INFORMATION: Pain shortness of breath pulmonary embolism COMPARISON: Chest x-ray performed same day TECHNIQUE: Prior to contrast administration, noncontrast localization images were obtained. Subsequently, multidetector volumetric imaging was performed from the thoracic inlet to below the diaphragms following the administration of 95 mL Optiray 350 intravenous contrast. No contrast reaction reported. Sagittal, coronal, and MIP oblique sagittal reformatted images were obtained on the CT workstation, uploaded to PACS, and reviewed. Total exam dose-length product 523 mGy-cm. FINDINGS: QUALITY OF STUDY/CONTRAST BOLUS: Satisfactory PULMONARY ARTERIES: No central or segmental pulmonary emboli. THORACIC AORTA: There is mild calcific atherosclerotic disease. LUNG: No focal consolidation, nodules or masses. PLEURA: No pleural effusion or pneumothorax. MEDIASTINUM: Normal heart size. No pericardial effusion. No hilar or mediastinal lymphadenopathy. No evidence of septal bowing or right heart strain. CHEST WALL/AXILLA: No axillary or internal mammary lymphadenopathy. OSSEOUS STRUCTURES: No acute or suspicious osseous abnormality. UPPER ABDOMEN: Unremarkable. No reflux of contrast into the hepatic veins to suggest elevated right heart pressures. IMPRESSION: No evidence of pulmonary embolism. No acute disease Mild calcific atherosclerotic disease. VTE: negative SERVICE DATE: 05/21/17-1612 EXAM TYPE: CARD - ECHOCARDIOGRAM SAMIR BETANCOURT Age: 66 : 1950 Gender: F Exam Date: 05/21/2017 16:31 Exam Location: ER Ht (in): 63 Wt (lb): 232 BSA: 2.22 BP: 134 / 95 Ordering Physician: JUDITH SHARMA MD Referring Physician: Josh Guzman M.D. Technologist: Kathe Garcia RDCS Room Number: ER#2 Indications: CHEST PAIN Rhythm: Technical Quality: Technically difficult study FINDINGS Left Ventricle Left ventricular cavity size normal. Left ventricular wall thickness moderately increased. No obvious regional wall motion abnormalities. Hyperdynamic left ventricular systolic function. Left ventricular ejection fraction is estimated at > 65 %. Right Ventricle Right ventricle not well visualized, grossly normal. Right Atrium Right atrium not well visualized, grossly normal. Left Atrium Left atrium not well visualized, grossly normal. Mitral Valve Mitral valve not well visualized, grossly normal. No mitral stenosis. Trace mitral regurgitation. Aortic Valve No aortic stenosis. Trileaflet aortic valve. Diffuse thickening (mild sclerosis) of the aortic valve cusps without reduced excursion. Tricuspid Valve Tricuspid valve not well visualized, grossly normal. Trace tricuspid regurgitation. Unable to estimate the right ventricular systolic pressure. Pulmonic Valve Pulmonic valve not well visualized, grossly normal. Pericardium No obvious pericardial effusion. Great Vessels Normal size aortic root. CONCLUSIONS Technically difficult study. Left ventricular cavity size normal. Left ventricular wall thickness moderately increased. No obvious regional wall motion abnormalities. Hyperdynamic left ventricular systolic function. Left ventricular ejection fraction is estimated at > 65 %. Right ventricle not well visualized, grossly normal. Unable to estimate the right ventricular systolic pressure. No obvious pericardial effusion. Josh Guzman M.D. (Electronically Signed) Final Date: 21 May 2017 20:40 MEASUREMENTS (Male / Female) Normal Values 2D ECHO LV Diastolic Diameter PLAX 3.7 cm 4.2 - 5.9 / 3.9 - 5.3 cm LV Systolic Diameter PLAX 2.1 cm 2.1 - 4.0 cm LV Fractional Shortening PLAX 43.2 % 25 - 46 % LV Ejection Fraction 2D Teich 75.2 % IVS Diastolic Thickness 1.7 cm LVPW Diastolic Thickness 1.6 cm LV Relative Wall Thickness 0.9 RV Internal Dim ED PLAX 2.2 cm 1.9 - 3.8 cm LVOT Diameter 2.0 cm Aortic Root Diameter 2.9 cm LA Systolic Diameter LX 3.9 cm 3.0 - 4.0 / 2.7 - 3.8 cm LA Volume 27.0 cm 18 - 58 / 22 - 52 cm Ascending Aorta Diameter 3.9 cm DOPPLER AV Peak Velocity 159.0 cm/s AV Peak Gradient 10.1 mmHg AV Mean Velocity 110.0 cm/s AV Mean Gradient 6.0 mmHg AV Velocity Time Integral 28.0 cm LVOT Peak Velocity 117.0 cm/s LVOT Peak Gradient 5.5 mmHg LVOT Mean Velocity 75.1 cm/s LVOT Mean Gradient 3.0 mmHg LVOT Velocity Time Integral 21.3 cm LVOT Stroke Volume 66.9 cm AV Area Cont Eq vti 2.4 cm AV Area Cont Eq pk 2.3 cm MV Peak Velocity 94.8 cm/s MV Peak Gradient 3.6 mmHg MV Mean Velocity 56.8 cm/s MV Mean Gradient 1.0 mmHg Mitral E Point Velocity 53.3 cm/s Mitral A Point Velocity 68.6 cm/s Mitral E to A Ratio 0.8 MV PHT Velocity 73.7 cm/s MV Deceleration [place] 389.0 cm/s MV Pressure Half Time 56.8 ms MV Area PHT 3.9 cm MV Deceleration Time 219.0 ms TR Peak Velocity 111.0 cm/s TR Peak Gradient 4.9 mmHg Right Atrial Pressure 5.0 mmHg Pulmonary Artery Systolic Pressu 9.9 mmHg Right Ventricular Systolic Press 9.9 mmHg PV Peak Velocity 102.0 cm/s PV Peak Gradient 4.2 mmHg PV Mean Velocity 61.2 cm/s PV Mean Gradient 2.0 mmHg PV Velocity Time Integral 16.1 cm LV E' Lateral Velocity 8.7 cm/s Mitral E to LV E' Lateral Ratio 6.1 LV E' Septal Velocity 10.2 cm/s Mitral E to LV E' Septal Ratio 5.2 Disposition Summary Disposition Principal Diagnosis: # unstable angina Additional Diagnosis: #osteoporosis #H/o Anxiety, depression Discharge Disposition: other general hospital Discharge Instructions General Discharge Information Code Status: Full Code Patient's Diet: Heart healthy Patient's Activity: As tolerated. Follow-Up Instructions/Appts: Please follow up with her proofer apprentice, PCP upon discharge. We are transferring you to a tertiary facility for anticipated cardiac cath. These continued to take any new medications as prescribed. Medications at Discharge Discharge Medications: Stop taking the following medications: Diclofenac Sodium (Pennsaid) 20 MG/GRAM PER ACTUATION (2 %) .LOT BOSS On the skin as needed for BACK OF KNEE Qty = 112 Continue taking these medications: Potassium Chloride (Potassium Chloride) 20 MEQ TAB.ER.PRT 1 Tablet ORAL DAILY Qty = 90 Comments: Last Taken: 05/22/17 Time: 8:45 AM Chlorthalidone (Chlorthalidone) 25 MG TABLET 1 Tablet ORAL DAILY Qty = 90 Comments: DID NOT RECEIVE IN HOSPITAL Sertraline HCl (Sertraline HCl) 50 MG TABLET 1.5 Tablet ORAL DAILY Qty = 180 Comments: Last Taken: 05/22/17 Time: 9:30 AM Calcium Carbonate/Vitamin D3 (Caltrate 600 + D Tablet) (Unknown Strength) TABLET Unknown Dose ORAL DAILY Comments: [facility] Multivit-Min/FA/Lycopen/Lutein (Centrum Silver Tablet) 0.4 MG-300 MCG-250 MCG TABLET 1 Tablet ORAL DAILY Comments: Last Taken: 05/22/17 Time: 8:45 AM Pyridoxine HCl (Vitamin B-6) (Unknown Strength) TABLET Unknown Dose ORAL DAILY Comments: DID NOT RECEIVE IN HOSPITAL Nystatin (Nystop) 100,000 UNIT/GRAM POWDER 1 Application On the skin as needed for SKIN FOLDS Qty = 60 Comments: DID NOT RECEIVE IN HOSPITAL Start taking the following new medications: Atorvastatin Calcium (Atorvastatin Calcium) 80 MG TABLET 1 Tablet ORAL 5 PM Qty = 60 No Refills Comments: Last Taken: 05/21/17 Time: 5:30 PM Aspirin (Aspirin*) 81 MG TAB.CHEW 1 Tablet ORAL DAILY Qty = 60 No Refills Comments: Last Taken: 05/22/17 Time: 8:45 AM Heparin (Heparin-1/2NS 25,000 Units/500) 25,000 UNIT/500 ML (50 UNIT/ML) IV.SOLN 12 Units INTRAVEN CONTINUOUS INFUSION Qty = 1 No Refills Comments: INFUSING AT 20MLS/HR OR 9.51 UNITS Nitroglycerin/D5w (Ntg 25 MG/250 Ml in D5w) 25 MG/250 ML (0.1 MG/ML) INFUS..BTL 5 Microgram INTRAVEN CONTINUOUS INFUSION Qty = 1 No Refills Instructions: PLEASE CT DRIP AT 5 MCG/HOUR Comments: INFUSING AT 5MCG/MIN OR 3MLS/HR Copies To: ISAMAR OWENS,JUWAN FREY MD,KURTIS Attending MD Review Statement Documenting Attending: SB FULLER MD Other Findings: I have personally seen and examined the patient, and agree with above. She will be transferred to the [facility] for cardiac catheterization with possible intervention. Have discussed this procedure with both the patient and her daughter (by phone).
[2017-05-22] MEDS ORDERED: HEPARIN-1/25000 UNI1 IV (09:41)
[2017-05-22] MEDS ORDERED: NTG 25 MG/25 MG/250 IV (09:41)
[2017-05-22] MEDS ORDERED: ATORVASTATIN CA80 M1 PO (09:42)
[2017-05-22] MEDS ORDERED: ASPIRIN81 M4 PO (09:42)
--- NOTE | 2017-05-22 10:30 | NUR ---
Patient is awake, alert and oriented x's 3, able to follow commands and answer questions appropriately. NSR on tele monitor, HR= 70-60's. SBP: 130-150's and patient currently denies any chest pain. Nitro gtt ifnusing at 5mcg/min and a heparin gtt is infusing per protocol. Pulses are palpable. On room air, lungs clear- O2 sats 92-99%. On cpap at bedtime for LINA. Abdomen is soft and non tender with + bowel sounds. She is OOB with supervision to the bathroom and able to complete all ADL's indep. Skin is intact. She currently denies any pain. Dr. Vasquez in to speak with patient and plan is for transfer to [facility] for a cardiac cath. Report given to Jordan- Awaiting call back for clearance to transfer. Will continue to closely monitor patient.
== END 2017-05-22 11:35 | disposition short-term general hospital (02) | DRG 311 ==
LOC: ERH 11:58 → ERHI 14:25 → CRI 14:25 → ENRESERV 16:34 → ENTRNSPT 17:31 → CRI 18:01 → CMPTRNSPT 18:13 → CRI 05-22 11:35
PROVIDERS: Internal Medicine; Physician Assistant Medical; ADMIT Internal Medicine
DX: I24.9 Acute ischemic heart disease, unspecified (principal); E66.01 Morbid (severe) obesity due to excess calories; M81.0 Age-related osteoporosis without current pathological fracture; F41.9 Anxiety disorder, unspecified; F32.9 Major depressive disorder, single episode, unspecified; Z98.84 Bariatric surgery status; G47.33 Obstructive sleep apnea (adult) (pediatric); R01.1 Cardiac murmur, unspecified
CPT/HCPCS: CCU; 81001; 82436; 93005; 93010; 93306; 96374; 99291; J1644; J3490; J7060